=== PATIENT | male | born 1985 | race Two or more races ===

== ENCOUNTER 2024-01-31 22:34 | Emergency (ER) | payer SELFPAY | END 2024-01-31 23:36 | disposition home or self-care (01) | LOC: CSHERS 22:34 | DX: S63.502A Unspecified sprain of left wrist, initial encounter (principal); F17.210 Nicotine dependence, cigarettes, uncomplicated; W05.1XXA Fall from non-moving nonmotorized scooter, initial encounter; Y93.I9 Activity, other involving external motion | CPT/HCPCS: G0390 ==